=== PATIENT | male | born 1970 | race Caucasian/White ===

== ENCOUNTER 2021-09-03 15:36 | Outpatient (CLI) | payer MEDICAID, SELFPAY ==
--- NOTE | 2021-09-03 15:30 | CRLHL7_ITS ---
For Patients: As a result of the Century Cures Act, medical imaging exams and procedure reports are released immediately into your electronic medical record. You may view this report before your referring provider. If you have questions, please contact your health care provider. INDICATION: Neck pain COMPARISON: 12/19/2019. TECHNIQUE: Sagittal T1, T2, and STIR sequences. Axial T2/gradient sequences. FINDINGS: Straightening of the normal cervical lordosis which may be due to muscle spasm or patient positioning. Otherwise, normal vertebral body and facet alignment. No fractures. No vertebral body loss of height. No evidence injury. No suspicious osseous lesions. Normal cord signal. No intradural mass or lesion. Interval postoperative changes anterior discectomy and fusion C5-6 and C6-7. Normal cord signal. No intradural mass or lesion. C1-2: No spinal canal narrowing. C2-3: No spinal canal or neural foraminal narrowing. C3-4: Mild disc degeneration posterior disc bulge. No narrowing of spinal canal. Uncovertebral joint hypertrophy results in moderate right and mild left neural foraminal narrowing. Potential impingement of the right C4 nerve root. C4-5: Disc generation and posterior disc bulging disc osteophyte complex. Effacement of the ventral thecal sac. Mild narrowing of spinal canal. Uncovertebral joint hypertrophy results in moderate right and lmva-el-jyhnpmom left neural foraminal narrowing. Potential impingement of the right C5 nerve root. C5-6: Postop changes. Residual left paracentral subarticular disc protrusion measures 3 mm in short axis. There remains luxy-[id number]-andvyvpo narrowing of spinal canal. Mild right and moderate severe left neural foraminal narrowing. Impingement of the left C6 nerve root. C6-7: Postoperative changes. Residual posterior disc bulge disc osteophyte complex with effacement of ventral thecal sac. Mild to moderate narrowing of spinal canal. Moderate right and moderate severe left neural foraminal narrowing. Impingement of left C7 nerve root. C7-T1: No narrowing of spinal canal. Moderate bilateral foraminal narrowing. Potential impingement of the C8 nerve roots. IMPRESSION: 1. Straightening of the normal cervical lordosis. Otherwise, normal alignment. No fractures. 2. Normal cord signal. 3. Interval postop changes C5-6 and C6-7. 4. At C3-4, moderate right and mild left neural foraminal narrowing. Potential impingement of the right C4 nerve root. 5. At C4-5, mild narrowing of the spinal canal. Moderate right and tvie-[id number]-fowxnlyj left neural foraminal narrowing. Potential impingement of the right C5 nerve root. 6. At C5-6, mild to moderate narrowing of spinal canal. Residual left paracentral subarticular disc protrusion moderate severe narrowing of the left neural foramina. Impingement of the left C6 nerve root. 7. At C6-7, moderate right and moderate severe left neural foraminal narrowing. Impingement of the left C7 nerve root. 8. At C7-T1, moderate narrowing of the bilateral neural foramina Dictated by Marty Thompson MD @ 09/04/2021 11:15:05 AM (Electronically Signed)
== END 2021-09-03 15:37 | disposition home or self-care (01) ==
LOC: MRI 15:37
PROVIDERS: PCP Family Medicine; Visit Provider Family Medicine
DX: M46.1 Sacroiliitis, not elsewhere classified (principal); M50.21 Other cervical disc displacement, high cervical region; M50.221 Other cervical disc displacement at C4-C5 level; M50.23 Other cervical disc displacement, cervicothoracic region
CPT/HCPCS: 72141

== ENCOUNTER 2021-11-04 15:15 | Outpatient (RCR) | payer MEDICAID, SELFPAY | END 2021-12-31 10:16 | disposition home or self-care (01) | PROVIDERS: PCP Family Medicine; Visit Provider Family Medicine | DX: M54.50 Low back pain, unspecified (principal); M54.2 Cervicalgia; G89.29 Other chronic pain; R53.1 Weakness; Z51.89 Encounter for other specified aftercare | CPT/HCPCS: 97110; 97140; 97162 ==

== ENCOUNTER 2021-12-07 14:27 | Outpatient (CLI) | payer MEDICAID, SELFPAY ==
[2021-12-07 22:05] LABS: Sodium* 140 mmol/L (135-149)
[2021-12-07 22:06] LABS: Albumin* 4.9 g/dL (3.3-5.0); Potassium* 4.3 mmol/L (3.6-5.1)
[2021-12-07 22:09] LABS: Alanine Aminotransferase* 44 U/L (4-50); Alkaline Phosphatase* 57 U/L (40-150); Aspartate Amino Transferase* 42 U/L (12-35); Bilirubin Total* 0.8 mg/dL (0.1-1.5); Blood Urea Nitrogen* 12 mg/dL (7-30); Calcium* 9.8 mg/dL (8.4-10.6); Carbon Dioxide* 29 mmol/L (20-32); Creatinine* 0.8 mg/dL (0.5-1.5); Estimated Glomerular Filt Rate 106 ml/min; Glucose* 200 mg/dL (60-115)
[2021-12-07 22:22] LABS: Chloride* 99 mmol/L (96-114)
== END 2021-12-07 14:28 | disposition home or self-care (01) ==
LOC: LKVREF 14:28
PROVIDERS: PCP Family Medicine; Visit Provider Family Medicine
DX: E11.9 Type 2 diabetes mellitus without complications (principal); E78.00 Pure hypercholesterolemia, unspecified; I10 Essential (primary) hypertension
CPT/HCPCS: 80053

== ENCOUNTER 2022-03-09 14:00 | Outpatient (CLI) | payer MEDICAID, SELFPAY ==
--- NOTE | 2022-03-09 14:00 | CRLHL7_ITS ---
For Patients: As a result of the Century Cures Act, medical imaging exams and procedure reports are released immediately into your electronic medical record. You may view this report before your referring provider. If you have questions, please contact your health care provider. Indication: FLANK PAIN,EVALUATE FOR KIDNEY STONES Technique: Noncontrast CT abdomen and pelvis Please note that all CT scans at this facility use dose modulation, iterative reconstruction, and/or weight-based dosing when appropriate to reduce radiation dose to as low as reasonably achievable. Comparison: 11/22/2017 Findings: Lung bases are clear. Fatty infiltration of the liver. Gallbladder normal. No calcified gallstones. No biliary obstruction. Normal pancreas. Normal spleen. Adrenal glands are normal. 5.7 millimeter stone in the distal right ureter, series 2, image 134. Normal left ureter. Normal right kidney. 1 millimeter stone lower pole left kidney. Atherosclerotic disease. No aneurysm. No enlarged retroperitoneal lymph nodes. No mesenteric adenopathy. No pelvic or inguinal adenopathy. The prostate is not enlarged. No bladder stone. Increased rectal stool. No bowel obstruction. No free air, free fluid or abscess. The appendix is normal. No abdominal wall hernia. Interbody and posterior fusion L5-S1. Right pelvic phlebolith is again noted. Impression: Punctate 1-2 millimeter stone lower pole left kidney. 5.7 millimeter nonobstructing stone distal right ureter. Increased stool in the rectum compatible with constipation. Hepatic steatosis. Please note that all CT scans at this facility use dose modulation, iterative reconstruction, and/or weight-based dosing when appropriate to reduce radiation dose to as low as reasonably achievable. Dictated by Doyle Ron MD @ 03/10/2022 12:12:11 PM (Electronically Signed)
== END 2022-03-09 14:01 | disposition home or self-care (01) ==
PROVIDERS: PCP Family Medicine; Visit Provider Family Medicine
DX: R10.9 Unspecified abdominal pain (principal); N20.0 Calculus of kidney; K76.0 Fatty (change of) liver, not elsewhere classified; K59.00 Constipation, unspecified; Z87.442 Personal history of urinary calculi
CPT/HCPCS: 74176

== ENCOUNTER 2023-01-18 11:12 | Outpatient (CLI) | payer MEDICAID, SELFPAY | END 2023-01-18 11:13 | disposition home or self-care (01) | LOC: NFLDREF 01-20 11:58 | PROVIDERS: PCP Family Medicine; Referring Provider Family Medicine; Visit Provider Family Medicine | DX: E11.9 Type 2 diabetes mellitus without complications (principal); E78.00 Pure hypercholesterolemia, unspecified; I10 Essential (primary) hypertension | CPT/HCPCS: 80048; 80061; 82043; 82570 ==

== ENCOUNTER 2023-04-21 14:12 | Outpatient (CLI) | payer MEDICAID, SELFPAY | END 2023-04-21 14:13 | disposition home or self-care (01) | PROVIDERS: PCP Family Medicine; Referring Provider Family Medicine; Visit Provider Family Medicine | DX: E11.9 Type 2 diabetes mellitus without complications (principal); E78.00 Pure hypercholesterolemia, unspecified | CPT/HCPCS: 80053 ==

== ENCOUNTER 2023-09-16 14:05 | Outpatient (CLI) | payer MEDICARE, SELFPAY | END 2023-09-16 14:06 | disposition home or self-care (01) | LOC: NFLDREF 09-19 18:50 | PROVIDERS: PCP Family Medicine; Referring Provider Family Medicine; Visit Provider Family Medicine | DX: E11.65 Type 2 diabetes mellitus with hyperglycemia (principal); I10 Essential (primary) hypertension; E78.00 Pure hypercholesterolemia, unspecified; N40.0 Benign prostatic hyperplasia without lower urinary tract symptoms; Z79.84 Long term (current) use of oral hypoglycemic drugs; Z12.5 Encounter for screening for malignant neoplasm of prostate | CPT/HCPCS: 80048; 80061; 82043; 82570; G0103 ==

== ENCOUNTER 2024-03-07 13:06 | Outpatient (CLI) | payer MEDICARE, SELFPAY | END 2024-03-07 13:07 | disposition home or self-care (01) | LOC: NFLDREF 03-14 02:26 | PROVIDERS: PCP Family Medicine; Referring Provider Family Medicine; Visit Provider Family Medicine | DX: E78.00 Pure hypercholesterolemia, unspecified (principal); N40.0 Benign prostatic hyperplasia without lower urinary tract symptoms; E66.9 Obesity, unspecified; R74.8 Abnormal levels of other serum enzymes; I10 Essential (primary) hypertension; E13.9 Other specified diabetes mellitus without complications; R53.83 Other fatigue; G62.9 Polyneuropathy, unspecified; F41.9 Anxiety disorder, unspecified; G89.29 Other chronic pain; M54.2 Cervicalgia; L40.9 Psoriasis, unspecified; Z79.84 Long term (current) use of oral hypoglycemic drugs; Z12.5 Encounter for screening for malignant neoplasm of prostate | CPT/HCPCS: 80053; 80061; 82043; 82306; 82570; 84443; G0103 ==

== ENCOUNTER 2024-06-05 11:15 | Outpatient (CLI) | payer MEDICARE, SELFPAY | END 2024-06-05 11:16 | disposition home or self-care (01) | LOC: NFLDREF 06-09 04:09 | PROVIDERS: PCP Family Medicine; Referring Provider Family Medicine; Visit Provider Family Medicine | DX: I10 Essential (primary) hypertension (principal); E78.00 Pure hypercholesterolemia, unspecified; E13.9 Other specified diabetes mellitus without complications; L40.9 Psoriasis, unspecified | CPT/HCPCS: 80053; 80061; 82043; 82570 ==

== ENCOUNTER 2024-10-02 13:05 | Outpatient (CLI) | payer MEDICARE, SELFPAY | END 2024-10-02 13:06 | disposition home or self-care (01) | LOC: NFLDREF 10-04 16:31 | PROVIDERS: PCP Family Medicine; Referring Provider Family Medicine; Visit Provider Family Medicine | DX: E13.9 Other specified diabetes mellitus without complications (principal) | CPT/HCPCS: 80048 ==